=== PATIENT | male | born 1955 | race Caucasian/White ===

== ENCOUNTER 2023-09-23 05:57 | Day surgery (SDC) | payer MEDICARE ==
[2023-09-22 11:06] LABS: BASOPHILS # (AUTO) 0.1 X10'3 (0-0.2); BASOPHILS % (AUTO) 1.2 % (0-1); EOSINOPHILS # (AUTO) 0.1 X10'3 (0-0.9); EOSINOPHILS % (AUTO) 1.7 % (0-6); HEMOGLOBIN 17.1 g/dl (14.0-17.9); MEAN CORPUSCULAR HEMOGLOBIN 32.9 PG (27.0-31.0); MEAN CORPUSCULAR HGB CONC 34.1 g/dL (33.0-36.5); MEAN CORPUSCULAR VOLUME 96.3 FL (78-98); MEAN PLATELET VOLUME 7.8 FL (7.4-10.4); MONOCYTES # (AUTO) 0.5 X10'3 (0-0.9); MONOCYTES % (AUTO) 7.3 % (2-12); NEUTROPHILS # (AUTO) 4.4 X10'3 (1.8-7.7); NEUTROPHILS % (AUTO) 61.8 % (42-75); PLATELET COUNT 192 X10'3 (140-440); RED BLOOD COUNT 5.19 X10'6 (4.70-6.10); RED CELL DISTRIBUTION WIDTH 14.5 % (11.5-14.5); WHITE BLOOD COUNT 7.1 X10'3 (4.5-11.0)
[2023-09-22 11:15] LABS: ALBUMIN 3.5 G/DL (3.4-5.0); ANION GAP 5 (8-16); BLOOD UREA NITROGEN 12 MG/DL (7-18); BUN/CREATININE RATIO 14.1 (10.0-20.0); CHLORIDE 101 MMOL/L (99-107); CREATININE 0.85 MG/DL (0.60-1.10); GLUCOSE 122 MG/DL (70-104); POTASSIUM 4.3 MMOL/L (3.5-5.1); SODIUM 135 MMOL/L (135-145); TOTAL CARBON DIOXIDE 28.6 MMOL/L (24-32); eGFR 90 ML/MIN
[2023-09-22 11:16] LABS: INR 3.2 INR; PROTHROMBIN TIME 32.1 SECONDS (9.0-12.0)
[~2023-09-23] VITALS: Ht 182.9 cm; Wt 95.1 kg
[2023-09-23] VITALS (9 sets, daily range): BP systolic 138–160; BP diastolic 92–111; PULSE 68–86; RESP 14–18; TEMP 97.8; O2SAT 94–98
[2023-09-23] MEDS ORDERED: LORazepam 0.5 MG tablet PO ONE (06:10)
[2023-09-23] MEDS ORDERED: diphenhydrAMINE 25mg capsule PO ONE (06:10)
[2023-09-23] MEDS ORDERED: MIDAZolam 1mg/ml 10ml vial IV ONE (06:10)
[2023-09-23] MEDS ORDERED: morphine 10mg/ml inj. IV ONE (06:10)
[2023-09-23] MEDS ORDERED: atropine 0.1mg/ml 10ml syringe IV ONE (06:10)
[2023-09-23] MEDS ORDERED: normal saline 1000ml 1,000 ML IV SCH (06:10)
[2023-09-23] MEDS ORDERED: amiodarone 150mg/dext, iso-os 100 ML IV ONE (06:10)
[2023-09-23] MEDS ORDERED: LEVO100T9 PO (06:20)
[2023-09-23] MEDS ORDERED: TADA5TAB13 PO (06:20)
[2023-09-23] MEDS ORDERED: CYCL-1 PO (06:20)
[2023-09-23] MEDS ORDERED: EZET10TA48 PO (06:20)
[2023-09-23] MEDS ORDERED: WARF7.5T48 PO (06:20)
[2023-09-23] MEDS ORDERED: SOTA80TA73 PO (06:20)
[2023-09-23] MEDS ORDERED: ENAL-79 PO (06:20)
[2023-09-23] MEDS ORDERED: METF-438 PO (06:20)
== END 2023-09-23 09:35 | disposition home or self-care (01) ==
LOC: SSTAY O 05:57
PROVIDERS: ATTEND Internal Medicine Cardiovascular Disease
DX: I48.0 Paroxysmal atrial fibrillation (principal); I10 Essential (primary) hypertension; E78.5 Hyperlipidemia, unspecified; G47.30 Sleep apnea, unspecified; G40.909 Epilepsy, unspecified, not intractable, without status epilepticus; G89.29 Other chronic pain; F32.A Depression, unspecified; Z79.01 Long term (current) use of anticoagulants; Z79.899 Other long term (current) drug therapy; Z86.718 Personal history of other venous thrombosis and embolism; Z86.010 Personal history of colon polyps; Z85.828 Personal history of other malignant neoplasm of skin; Z98.890 Other specified postprocedural states; Z87.891 Personal history of nicotine dependence; Z82.3 Family history of stroke; Z82.49 Family history of ischemic heart disease and other diseases of the circulatory system
CPT/HCPCS: 36415; 80048; 82948; 85025; 85610; 92960; 93005; A4620; J2250; J2274; J7030

== ENCOUNTER 2023-11-25 05:55 | Day surgery (SDC) | payer MEDICARE ==
[2023-11-24 11:22] LABS: BASOPHILS # (AUTO) 0.1 X10'3 (0-0.2); BASOPHILS % (AUTO) 0.9 % (0-1); EOSINOPHILS # (AUTO) 0.1 X10'3 (0-0.9); EOSINOPHILS % (AUTO) 1.9 % (0-6); HEMATOCRIT 47.4 % (42.0-52.0); HEMOGLOBIN 16.6 g/dl (14.0-17.9); LYMPHOCYTES # (AUTO) 1.5 X10'3 (1.1-4.8); LYMPHOCYTES % (AUTO) 23.8 % (21-51); MEAN CORPUSCULAR HEMOGLOBIN 33.7 PG (27.0-31.0); MEAN CORPUSCULAR VOLUME 96.3 FL (78-98); MEAN PLATELET VOLUME 7.8 FL (7.4-10.4); MONOCYTES # (AUTO) 0.5 X10'3 (0-0.9); MONOCYTES % (AUTO) 7.2 % (2-12); NEUTROPHILS # (AUTO) 4.2 X10'3 (1.8-7.7); NEUTROPHILS % (AUTO) 66.2 % (42-75); PLATELET COUNT 168 X10'3 (140-440); RED BLOOD COUNT 4.92 X10'6 (4.70-6.10); RED CELL DISTRIBUTION WIDTH 14.4 % (11.5-14.5); WHITE BLOOD COUNT 6.3 X10'3 (4.5-11.0)
[2023-11-24 11:31] LABS: ALBUMIN 3.8 G/DL (3.4-5.0); ANION GAP 6 (8-16); BLOOD UREA NITROGEN 12 MG/DL (7-18); BUN/CREATININE RATIO 12.9 (10.0-20.0); CHLORIDE 103 MMOL/L (99-107); CREATININE 0.93 MG/DL (0.60-1.10); GLUCOSE 120 MG/DL (70-104); POTASSIUM 4.8 MMOL/L (3.5-5.1); SODIUM 136 MMOL/L (135-145); TOTAL CARBON DIOXIDE 27.2 MMOL/L (24-32); eGFR 81 ML/MIN
[2023-11-24 11:36] LABS: APTT 30 SECONDS (22-32); INR 1.1 INR; PROTHROMBIN TIME 12.2 SECONDS (9.0-12.0)
[~2023-11-25] VITALS: Ht 182.9 cm; Wt 97.0 kg
[2023-11-25] VITALS (12 sets, daily range): BP systolic 112–146; BP diastolic 72–86; PULSE 58–85; RESP 11–16; TEMP 97.8; O2SAT 92–97
[~2023-11-25 05:55] MED LIST: CYCL-1 PO; ENAL-79 PO; EZET10TA48 PO; LEVO100T9 PO; METF-438 PO; SOTA80TA73 PO; TADA5TAB13 PO; WARF7.5T48 PO
[2023-11-25] MEDS ORDERED: METF-436 PO (06:28)
[2023-11-25] MEDS ORDERED: SPIR25TA5 PO (06:30)
[2023-11-25] MEDS ORDERED: AMI200T PO (06:30)
[2023-11-25] MEDS ORDERED: CARV25TA2 PO (06:30)
[2023-11-25] MEDS ORDERED: LIDOcaine 1% (10mg/ml) 2ml vial ONE (07:29)
[2023-11-25] MEDS ORDERED: verapamil 2.5 mg/ml inj IV ONE (07:29)
[2023-11-25] MEDS ORDERED: fentaNYL/PF 50MCG/1 ML 2ML syringe ONE ×2 (07:29→08:56)
[2023-11-25] MEDS ORDERED: midazolam 1 mg/ML 2ml injection ONE (07:30)
[2023-11-25] MEDS ORDERED: iohexol 350MG/ML 100ml bottle IV ONE (07:30)
[2023-11-25] MEDS ORDERED: nitroGLYCERIN 500mcg/5mL D5W 5 ML IV ONE (07:30)
[2023-11-25] MEDS ORDERED: heparin 1,000unit/ml 10ml vial 10 ML ONE (07:30)
[2023-11-25] MEDS ORDERED: iohexol 350 MG/ML 50ML vial IV ONE ×2 (07:30→08:12)
[2023-11-25] MEDS: diphenhydrAMINE 25mg capsule PO PRN (07:34)
[2023-11-25] MEDS: LORazepam 0.5 MG tablet PO PRN (07:34)
[2023-11-25] MEDS: normal saline 1,000 ML IV SCH (07:34)
[2023-11-25] MEDS ORDERED: LIDOcaine 1% 30ml preserv. free vial ONE (08:31)
[2023-11-25] MEDS ORDERED: heparin 1,000 UNITS/NS 500ml 500 ML ONE (08:57)
[2023-11-25] MEDS ORDERED: proCHLORperazine 10 MG/2 ml inj IV PRN (10:25)
[2023-11-25] MEDS ORDERED: acetaminophen 325mg tablet PO PRN (10:25)
[2023-11-25] MEDS ORDERED: HYDROcodone/acetaminophen 10/325mg tab PO PRN (10:25)
[2023-11-25] MEDS ORDERED: ondansetron/PF 4mg/2ml inj IV PRN (10:25)
[2023-11-25] MEDS ORDERED: HYDROcodone/acetaminophen 5mg/325mg tablet PO PRN (10:25)
[2023-11-25 11:28] LABS: ISTAT HGB MIX 10.5 g/dl (14.0-17.9); ISTAT HGB MIX 14.6 g/dl (14.0-17.9); ISTAT Hct MIX 31 %PCV (42-52); ISTAT Hct MIX 43 %PCV (42-52); ISTAT O2 SATURATION MIX VENOUS 69 % (60-80); ISTAT O2 SATURATION MIX VENOUS 91 % (60-80); ISTAT SOURCE BLNK
== END 2023-11-25 14:55 | disposition home or self-care (01) ==
LOC: SSTAY O 05:55
PROVIDERS: ATTEND Internal Medicine Cardiovascular Disease
DX: I34.0 Nonrheumatic mitral (valve) insufficiency (principal); I25.10 Atherosclerotic heart disease of native coronary artery without angina pectoris; I10 Essential (primary) hypertension; E78.5 Hyperlipidemia, unspecified; G47.30 Sleep apnea, unspecified; G40.909 Epilepsy, unspecified, not intractable, without status epilepticus; G89.18 Other acute postprocedural pain; F32.A Depression, unspecified; I48.0 Paroxysmal atrial fibrillation; Z79.01 Long term (current) use of anticoagulants; Z79.899 Other long term (current) drug therapy; Z86.718 Personal history of other venous thrombosis and embolism; Z86.010 Personal history of colon polyps; Z85.828 Personal history of other malignant neoplasm of skin; Z87.891 Personal history of nicotine dependence; Z82.49 Family history of ischemic heart disease and other diseases of the circulatory system; Z82.3 Family history of stroke
CPT/HCPCS: 36415; 76937; 80048; 82803; 85014; 85025; 85610; 85730; 93005; 93460; 99152; 99153; J1644; J2250; J3010; J3490; J7030; Q0163; Q9967; A6258; A6402; C1725; C1751; C1760; C1769; C1894

== ENCOUNTER 2023-11-27 10:59 | Emergency (ER) | payer MEDICARE ==
[~2023-11-27] VITALS: Ht 182.9 cm; Wt 93.5 kg
[~2023-11-27 10:59] MED LIST changes: +AMI200T PO; +CARV25TA2 PO; -CYCL-1 PO; +METF-436 PO; -METF-438 PO; -SOTA80TA73 PO; +SPIR25TA5 PO
[2023-11-27 12:43] LABS: BASOPHILS # (AUTO) 0.1 X10'3 (0-0.2); BASOPHILS % (AUTO) 0.9 % (0-1); EOSINOPHILS # (AUTO) 0.1 X10'3 (0-0.9); HEMATOCRIT 48.1 % (42.0-52.0); HEMOGLOBIN 16.5 g/dl (14.0-17.9); LYMPHOCYTES # (AUTO) 1.9 X10'3 (1.1-4.8); LYMPHOCYTES % (AUTO) 23.6 % (21-51); MEAN CORPUSCULAR HEMOGLOBIN 33.1 PG (27.0-31.0); MEAN CORPUSCULAR HGB CONC 34.3 g/dL (33.0-36.5); MEAN CORPUSCULAR VOLUME 96.4 FL (78-98); MEAN PLATELET VOLUME 7.8 FL (7.4-10.4); MONOCYTES # (AUTO) 0.6 X10'3 (0-0.9); MONOCYTES % (AUTO) 7.2 % (2-12); NEUTROPHILS # (AUTO) 5.3 X10'3 (1.8-7.7); NEUTROPHILS % (AUTO) 67.3 % (42-75); PLATELET COUNT 185 X10'3 (140-440); RED BLOOD COUNT 4.99 X10'6 (4.70-6.10); RED CELL DISTRIBUTION WIDTH 14.3 % (11.5-14.5); WHITE BLOOD COUNT 7.8 X10'3 (4.5-11.0)
[2023-11-27 12:55] LABS: INR 1.1 INR; PROTHROMBIN TIME 11.5 SECONDS (9.0-12.0)
[2023-11-27 13:08] LABS: ALANINE AMINOTRANSFERASE 26 U/L (12-78); ALBUMIN 3.7 G/DL (3.4-5.0); ALBUMIN/GLOBULIN RATIO 0.8 (1.1-1.5); ALKALINE PHOSPHATASE 70 IU/L (46-116); ANION GAP 13 (8-16); ASPARTATE AMINO TRANSFERASE 11 U/L (10-37); BILIRUBIN,TOTAL 1.4 MG/DL (0.1-1.0); BLOOD UREA NITROGEN 12 MG/DL (7-18); BUN/CREATININE RATIO 13.3 (10.0-20.0); CALCIUM 9.4 MG/DL (8.5-10.1); CHLORIDE 103 MMOL/L (99-107); GLUCOSE 115 MG/DL (70-104); POTASSIUM 4.5 MMOL/L (3.5-5.1); SODIUM 138 MMOL/L (135-145); TOTAL CARBON DIOXIDE 21.9 MMOL/L (24-32); TOTAL PROTEIN 8.4 G/DL (6.4-8.2); eCRCL 89 ML/MIN; eGFR 84 ML/MIN
[2023-11-27 17:36] VITALS: BP 154/102; PULSE 83; RESP 17; TEMP 98.1; O2SAT 99
== END 2023-11-27 17:37 | disposition home or self-care (01) ==
LOC: ER 11:00
DX: S30.1XXA Contusion of abdominal wall, initial encounter (principal); Z91.041 Radiographic dye allergy status; Z79.899 Other long term (current) drug therapy; X58.XXXA Exposure to other specified factors, initial encounter; Y93.89 Activity, other specified; Y92.89 Other specified places as the place of occurrence of the external cause; Y99.8 Other external cause status
CPT/HCPCS: 36415; 72192; 80053; 85025; 85610; 93926; 93971; 99284

== ENCOUNTER 2023-12-09 07:16 | Day surgery (SDC) | payer MEDICARE ==
[2023-12-08 13:04] LABS: BASOPHILS # (AUTO) 0.1 X10'3 (0-0.2); BASOPHILS % (AUTO) 0.9 % (0-1); EOSINOPHILS # (AUTO) 0.1 X10'3 (0-0.9); EOSINOPHILS % (AUTO) 1.9 % (0-6); HEMATOCRIT 46.1 % (42.0-52.0); HEMOGLOBIN 16.2 g/dl (14.0-17.9); LYMPHOCYTES # (AUTO) 1.9 X10'3 (1.1-4.8); LYMPHOCYTES % (AUTO) 27.7 % (21-51); MEAN CORPUSCULAR HEMOGLOBIN 33.8 PG (27.0-31.0); MEAN CORPUSCULAR HGB CONC 35.1 g/dL (33.0-36.5); MEAN CORPUSCULAR VOLUME 96.1 FL (78-98); MEAN PLATELET VOLUME 7.9 FL (7.4-10.4); MONOCYTES # (AUTO) 0.5 X10'3 (0-0.9); MONOCYTES % (AUTO) 7.2 % (2-12); NEUTROPHILS # (AUTO) 4.3 X10'3 (1.8-7.7); NEUTROPHILS % (AUTO) 62.3 % (42-75); PLATELET COUNT 198 X10'3 (140-440); RED BLOOD COUNT 4.79 X10'6 (4.70-6.10); RED CELL DISTRIBUTION WIDTH 14.6 % (11.5-14.5); WHITE BLOOD COUNT 6.9 X10'3 (4.5-11.0)
[2023-12-08 13:28] LABS: ALBUMIN 3.7 G/DL (3.4-5.0); ANION GAP 7 (8-16); BLOOD UREA NITROGEN 11 MG/DL (7-18); BUN/CREATININE RATIO 12.2 (10.0-20.0); CALCIUM 8.8 MG/DL (8.5-10.1); CHLORIDE 101 MMOL/L (99-107); GLUCOSE 121 MG/DL (70-104); POTASSIUM 4.7 MMOL/L (3.5-5.1); SODIUM 134 MMOL/L (135-145); TOTAL CARBON DIOXIDE 26.2 MMOL/L (24-32); eGFR 84 ML/MIN
[2023-12-08 14:06] LABS: INR 3.5 INR
[2023-12-09] VITALS (19 sets, daily range): BP systolic 111–147; BP diastolic 61–86; PULSE 54–75; RESP 10–18; TEMP 98.1; O2SAT 94–100
[~2023-12-09] VITALS: Ht 182.9 cm; Wt 96.5 kg
[2023-12-09] MEDS ORDERED: atropine 0.1mg/ml 10ml syringe IV ONE (07:40)
[2023-12-09] MEDS ORDERED: diphenhydrAMINE 25mg capsule PO ONE (07:40)
[2023-12-09] MEDS ORDERED: LORazepam 0.5 MG tablet PO ONE (07:40)
[2023-12-09] MEDS: morphine 10mg/ml inj. IV ONE (08:50)
[2023-12-09] MEDS: MIDAZolam 1mg/ml 10ml vial IV ONE (08:50)
[2023-12-09] MEDS: normal saline 1000ml 1,000 ML IV SCH (08:50)
[2023-12-09] MEDS: amiodarone 150mg/dext, iso-os 100 ML IV ONE (08:50)
== END 2023-12-09 11:00 | disposition home or self-care (01) ==
LOC: SSTAY O 07:16
PROVIDERS: ATTEND Internal Medicine Cardiovascular Disease
DX: I48.0 Paroxysmal atrial fibrillation (principal); I10 Essential (primary) hypertension; E78.5 Hyperlipidemia, unspecified; G47.30 Sleep apnea, unspecified; F32.A Depression, unspecified; G40.909 Epilepsy, unspecified, not intractable, without status epilepticus; G89.29 Other chronic pain; Z79.01 Long term (current) use of anticoagulants; Z79.899 Other long term (current) drug therapy; Z86.718 Personal history of other venous thrombosis and embolism; Z86.010 Personal history of colon polyps; Z98.890 Other specified postprocedural states; Z87.891 Personal history of nicotine dependence; Z82.49 Family history of ischemic heart disease and other diseases of the circulatory system; Z82.3 Family history of stroke
CPT/HCPCS: 36415; 80048; 85025; 85610; 92960; 93005; J0282; J2250; J2274; J7030; A4620